=== PATIENT | male | born 1985 | race Caucasian/White ===

== ENCOUNTER → 2018-09-03 | Outpatient (CLI) | payer MEDICARE, MEDICAID ==
[~2018-09-03] MED LIST: AMOX-559 PO; DIVA500T97 PO; DOXY20PT PO; FLUT16SP20 NS; HYDR473S4 PO
== END ==
LOC: US 09-02 16:29
PROVIDERS: ATTEND Family Medicine
DX: Q24.9 Congenital malformation of heart, unspecified (principal); I51.7 Cardiomegaly
CPT/HCPCS: 93306

== ENCOUNTER 2018-09-21 18:08 | Emergency (ER) | payer MEDICARE, MEDICAID ==
--- NOTE | 2018-09-21 18:12 | ER Report ---
History and Physical Time Seen By MD: 18:11 HPI/ROS CHIEF COMPLAINT: Flu symptoms HISTORY OF PRESENT ILLNESS: 33 year-old male with a mental health history. Presents ambulatory to the ER complaining of flu symptoms for 2 weeks. He was recently started on what to do. He attributes some of the symptoms to starting limited to the. He has since stopped the lip to do. His also stopped several of his other medications. Patient notes a dry cough. He notes a mild sore throat with gland swelling on the left side of his neck. He notes no photophobia. He did have a headache that resolved with [id number] medication. He notes some subjective fever and chills. He did not document an actual fever. Describes diffuse bodyaches REVIEW OF SYSTEMS: Respiratory: As above Cardiovascular: No chest pain, no palpitations. Gastrointestinal: No vomiting, no abdominal pain. Musculoskeletal: No back pain. Allergies: Coded Allergies: No Known Allergies (Verified Allergy, Mild, 02/19/17) Home Meds Active Scripts Amoxicillin/Pot Clav 875-125 Mg Tab (AUGMENTIN 875-125 TABLET) 1 Each Tablet, 1 TAB PO Q12H, #20 TAB 0 Refills Prov:FLORESITA DENNISON MD 02/19/17 Reported Medications Doxycycline Hyclate (DOXYCYCLINE HYCLATE) 20 Mg Tablet, PO DAILY 02/19/17 Divalproex Sodium (Depakote) 500 Mg Tablet.dr, 1000 MG PO BID, 0 Refills 06/01/09 Reviewed Nurses Notes: Yes Old Medical Records Reviewed: Yes Hx Smoking: Yes Smoking Status: Current: Some Days Smoker Exposure to Second Hand Smoke?: Yes Hx Substance Use Disorder: No Constitutional Vital Sign - Last 24 Hours 09/21/18 09/21/18 09/21/18 09/21/18 18:13 18:13 18:23 18:30 Temp 98.1 Pulse 99 105 Resp 24 B/P (MAP) 150/95 (113) 150/95 120/81 (94) Pulse Ox 94 95 O2 Delivery Room Air 09/21/18 09/21/18 09/21/18 09/21/18 18:38 18:53 19:00 19:08 Pulse 103 104 97 B/P (MAP) 127/86 (100) Pulse Ox 95 94 93 Physical Exam Vital signs stable, afebrile, pulse ox normal General Appearance: The patient is alert, has no immediate need for airway protection and no current signs of toxicity. Mild distress HEENT: Pupils equal and round no injection. No mattering or discharge, TMs normal, oropharynx with mild erythema, tonsillar hypertrophy noted, no exudate Respiratory: Chest is non tender, lungs are clear to auscultation. No wheezing or rails Cardiac: regular rate and rhythm Gastrointestinal: Abdomen is soft and non tender, no masses, bowel sounds normal. Musculoskeletal: Neck: Neck is supple and non tender. Tender lymphadenopathy, left anterior cervical chain Extremities have full range of motion and are non tender. No edema, no joint swelling Skin: No rashes or lesions. DIFFERENTIAL DIAGNOSIS: After history and physical exam differential diagnosis was considered for influenza, viral syndrome, strep pharyngitis, viral upper respiratory infection, sinusitis, otitis media, adverse drug reaction, Medical Decision Making Data Points Laboratory Hematology Test 09/21/18 18:21 Influenza Virus Type A (PCR) Negative (NEGATIVE) Influenza Virus Type B (PCR) Negative (NEGATIVE) Group A Streptococcus Screen Negative (NEGATIVE) Chemistry Test 09/21/18 18:21 Influenza Virus Type A (PCR) Negative (NEGATIVE) Influenza Virus Type B (PCR) Negative (NEGATIVE) Group A Streptococcus Screen Negative (NEGATIVE) Microbiology Microbiology Date/Time Source Procedure Growth Status 09/21/18 18:21 Throat Group A Streptococcus Screen ([facility]) - Preliminary CHECKING FOR POSSIBLE PATHOGENS, WORK... Resulted ED Course/Re-evaluation ED Course Patient was admitted to an examination room. H&P was done. The differential diagnoses was considered. On clinical examination. Patient has flu symptoms for several weeks. He thinks he may be related to the medication list to to which she was started on which she is discontinued. She describes diffuse body aches, subjective chills, rhinitis and a dry cough. Patient's had no nausea or vomiting. His vital signs are stable. Diagnostic studies a rapid strep is negative, rapid influenza is negative. Patient is advised to conservative treatment plan of [id number] medication to control his cough and symptoms. Patient's advised to follow-up with primary care and his mental health specialists to resume medication since he stopped all of his medications. Decision to Disposition Date: Sep 21, 2018 Decision to Disposition Time: 18:44 Depart Departure Latest Vital Signs Vital Signs Date Time Temp Pulse Resp B/P (MAP) Pulse Ox O2 Delivery O2 Flow Rate FiO2 09/21/18 19:08 97 93 09/21/18 19:00 127/86 (100) 09/21/18 18:13 98.1 24 Room Air Impression: Primary Impression: Viral upper respiratory infection Additional Impression: Schizoaffective disorder Condition: Improved Disposition: HOME OR SELF-CARE Referrals: OSMANI CARDOZA MD, FARRUKH MD Patient Instructions: Upper Respiratory Infection (ED) Additional Instructions: Follow-up with your primary care physician and your mental health provider Problem Qualifiers Additional Impression: Schizoaffective disorder Schizoaffective disorder type: unspecified Qualified Codes: F25.9 - Schizoaffective disorder, unspecified DOROTHY BLACK DO Sep 21, 2018 18:11
[2018-09-21 19:00] VITALS: BP 127/86
[2018-09-21] MEDS ORDERED: ONDANSETRON 4 MG ODT TABDP SL ONE (19:10)
[2018-09-21] MEDS ORDERED: FAMOTIDINE 20 MG TAB PO ONE (19:10)
== END 2018-09-21 19:21 | disposition home or self-care (01) ==
LOC: ER 18:15
DX: J06.9 Acute upper respiratory infection, unspecified (principal); F25.9 Schizoaffective disorder, unspecified
CPT/HCPCS: 87081; 87502; 87880; 99283; A9270; Q0162; S0119